=== PATIENT | female | born 1950 | race African-American/Black ===

== ENCOUNTER 2019-09-05 14:09 | Outpatient (CLI) | payer MEDICARE, MEDICAID, SELFPAY ==
[2019-09-05 15:12] LABS: Cholesterol 177 mg/dL (0-200); HDL Direct 49 mg/dL; Triglycerides 99 mg/dL (<150)
[2019-09-05 15:13] LABS: Hemoglobin A1C 7.5 % (<5.7)
[2019-09-05 15:24] LABS: LDL Cholesterol Direct 104 mg/dL
== END 2019-09-05 14:10 | disposition home or self-care (01) ==
PROVIDERS: PCP Family Medicine; Visit Provider Family Medicine
DX: E11.9 Type 2 diabetes mellitus without complications (principal)
CPT/HCPCS: 36415; 80061; 83036

== ENCOUNTER 2020-03-13 11:23 | Outpatient (CLI) | payer MEDICARE, MEDICAID, SELFPAY ==
--- NOTE | ~2020-03-13 | XR_ITS ---
XR hip LT 2V w AP pelvis DATE: 03/13/2020 11:50 INDICATION: Left hip pain. Patient fell 2 months ago. TECHNIQUE: AP pelvis. AP and lateral views of left hip COMPARISON: None FINDINGS: Osteitis pubis. The sacroiliac joints are intact. Hip joint spaces are symmetric and relati vely preserved. No pelvic fracture or bone destruction. No fracture, dislocation, avascular necrosis or bone destruct ion of the left hip. IMPRESSION: Osteitis pubis No pelvic or left hip fracture Reviewed, dictated and finalized at location A.
== END 2020-03-13 11:24 | disposition home or self-care (01) ==
PROVIDERS: PCP Family Medicine; Visit Provider Family Medicine
DX: M25.559 Pain in unspecified hip (principal)
CPT/HCPCS: 73502

== ENCOUNTER 2020-09-26 10:19 | Outpatient (CLI) | payer MEDICARE, MEDICAID, SELFPAY ==
[2020-09-26 11:02] LABS: Basophils Absolute Auto 0.1 K/mm3 (0.0-0.1); Basophils Percent Auto 0.7 % (0.2-1.2); Eosinophils Absolute Auto 0.1 K/mm3 (0-0.3); Eosinophils Percent Auto 1.1 % (0-4.4); Hematocrit 46.9 % (37.0-47.0); Hemoglobin 15.5 g/dL (12.0-15.0); Immature Granulocyte Absolute 0.01 K/mm3 (0.00-0.031); Immature Granulocyte Percent A 0.1 % (0-0.5); Lymphocytes Absolute Auto 4.23 K/mm3 (0.9-3.2); Lymphocytes Percent Auto 52.6 % (18.3-44.2); Mean Corpuscular Hemoglobin 29.4 pg (26-34); Mean Platelet Volume 10.2 fl (7.4-10.4); Monocytes Absolute Auto 0.5 K/mm3 (0.1-0.6); Monocytes Percent Auto 5.6 % (2.6-8.5); Neutrophils Absolute Auto 3.2 K/mm3 (1.3-6.7); Neutrophils Percent Auto 39.9 % (45.5-73.1); Platelet Count Result 304 k/mm3 (150-375); Red Blood Count 5.27 M/mm3 (4.2-5.4); Red Cell Distribution Width 14.2 % (11.5-14.5)
[2020-09-26 11:11] LABS: Alanine Aminotransferase 18 U/L (4-35); Albumin Level 4.5 g/dL (3.5-5.1); Alkaline Phosphatase 86 U/L (38-126); Anion Gap 7 mmol/L (8-16); Aspartate Amino Transferase 24 U/L (14-36); Bilirubin,Total 0.3 mg/dL (0.2-1.3); Blood Urea Nitrogen 15 mg/dL (7-17); Calcium 10.1 mg/dL (8.4-10.2); Carbon Dioxide 29 mmol/L (22-30); Chloride 103 mmol/L (98-107); Cholesterol 185 mg/dL (0-200); Estimated Glomerular Filt Rate > 60; Glucose 175 mg/dL (65-105); HDL Direct 63 mg/dL; Potassium 3.8 mmol/L (3.4-5.0); Sodium 139 mmol/L (137-145); Triglycerides 104 mg/dL (<150)
[2020-09-26 11:19] LABS: Creatinine Urine 245.9 mg/dL
[2020-09-26 11:21] LABS: LDL Cholesterol Direct 91 mg/dL
[2020-09-26 11:23] LABS: MALB Creatinine Ratio 14.8 mg/g (0-30); Microalbumin Urine Random 36.4 mg/L (0-16.7)
[2020-09-26 11:29] LABS: Hemoglobin A1C 7.4 % (<5.7)
[2020-09-26 11:40] LABS: Thyroid Stimulating Hormone 0.965 uIU/mL (0.465-4.680)
== END 2020-09-26 10:20 | disposition home or self-care (01) ==
LOC: ANHLAB 10:27
PROVIDERS: PCP Family Medicine; Visit Provider Family Medicine
DX: E11.9 Type 2 diabetes mellitus without complications (principal); E78.5 Hyperlipidemia, unspecified; I10 Essential (primary) hypertension; Z13.0 Encounter for screening for diseases of the blood and blood-forming organs and certain disorders involving the immune mechanism
CPT/HCPCS: 36415; 80053; 80061; 82043; 83036; 84443; 85025

== ENCOUNTER 2021-08-31 12:51 | Outpatient (CLI) | payer MEDICARE, MEDICAID, SELFPAY ==
[2021-08-31 13:55] LABS: Basophils Absolute Auto 0.1 K/mm3 (0.0-0.1); Basophils Percent Auto 0.8 % (0.2-1.2); Eosinophils Absolute Auto 0.1 K/mm3 (0-0.3); Eosinophils Percent Auto 1.8 % (0-4.4); Hematocrit 46.9 % (37.0-47.0); Hemoglobin 15.4 g/dL (12.0-15.0); Immature Granulocyte Absolute 0.01 K/mm3 (0.00-0.031); Immature Granulocyte Percent A 0.1 % (0-0.5); Lymphocytes Absolute Auto 3.11 K/mm3 (0.9-3.2); Lymphocytes Percent Auto 43.8 % (18.3-44.2); Mean Corpuscular HGB Conc 32.8 g/dl (32-36); Mean Corpuscular Hemoglobin 29.8 pg (26-34); Mean Corpuscular Volume 90.7 fl (80-100); Mean Platelet Volume 10.3 fl (7.4-10.4); Monocytes Absolute Auto 0.4 K/mm3 (0.1-0.6); Monocytes Percent Auto 6.2 % (2.6-8.5); Neutrophils Absolute Auto 3.4 K/mm3 (1.3-6.7); Neutrophils Percent Auto 47.3 % (45.5-73.1); Platelet Count Result 262 k/mm3 (150-375); Red Blood Count 5.17 M/mm3 (4.2-5.4); Red Cell Distribution Width 14.3 % (11.5-14.5); White Blood Count 7.1 K/mm3 (4.5-10.0)
[2021-08-31 14:01] LABS: Alanine Aminotransferase 18 U/L (4-35); Albumin Level 4.5 g/dL (3.5-5.1); Alkaline Phosphatase 88 U/L (38-126); Anion Gap 10 mmol/L (8-16); Aspartate Amino Transferase 24 U/L (14-36); Bilirubin,Total 0.5 mg/dL (0.2-1.3); Blood Urea Nitrogen 14 mg/dL (7-17); Calcium 9.5 mg/dL (8.4-10.2); Carbon Dioxide 21 mmol/L (22-30); Chloride 108 mmol/L (98-107); Cholesterol 191 mg/dL (0-200); Estimated Glomerular Filt Rate > 60; Glucose 178 mg/dL (65-110); HDL Direct 54 mg/dL; Potassium 3.4 mmol/L (3.4-5.0); Sodium 139 mmol/L (137-145); Triglycerides 98 mg/dL (<150)
[2021-08-31 14:13] LABS: LDL Cholesterol Direct 95 mg/dL
[2021-08-31 14:23] LABS: Hemoglobin A1C 7.9 % (<5.7)
== END 2021-08-31 12:52 | disposition home or self-care (01) ==
PROVIDERS: PCP Family Medicine; Visit Provider Family Medicine
DX: E11.9 Type 2 diabetes mellitus without complications (principal); D75.1 Secondary polycythemia
CPT/HCPCS: 36415; 80053; 80061; 83036; 85025

== ENCOUNTER 2022-08-09 12:48 | Outpatient (CLI) | payer MEDICARE, MEDICAID, SELFPAY ==
[2022-08-09 14:14] LABS: Alanine Aminotransferase 21 U/L (6-35); Albumin Level 4.4 g/dL (3.5-5.1); Alkaline Phosphatase 98 U/L (38-126); Anion Gap 9 mmol/L (8-16); Aspartate Amino Transferase 25 U/L (14-36); Bilirubin,Total 0.5 mg/dL (0.2-1.3); Blood Urea Nitrogen 21 mg/dL (7-17); Calcium 9.8 mg/dL (8.4-10.2); Carbon Dioxide 26 mmol/L (22-30); Chloride 104 mmol/L (98-107); Cholesterol 145 mg/dL (0-200); Estimated Glomerular Filt Rate > 60; Glucose 204 mg/dL (65-110); HDL Direct 36 mg/dL; Potassium 3.5 mmol/L (3.4-5.0); Sodium 139 mmol/L (137-145); Triglycerides 106 mg/dL (<150)
[2022-08-09 14:25] LABS: LDL Cholesterol Direct 73 mg/dL
[2022-08-09 16:33] LABS: Creatinine Urine 155.6 mg/dL
[2022-08-09 16:38] LABS: Microalbumin Urine Random 29.5 mg/L (0-16.7)
[2022-08-10 17:39] LABS: Hemoglobin A1C 9.2 % (<5.7)
== END 2022-08-09 12:49 | disposition home or self-care (01) ==
PROVIDERS: PCP Physician Assistant; Visit Provider Physician Assistant
DX: E11.9 Type 2 diabetes mellitus without complications (principal); I10 Essential (primary) hypertension
CPT/HCPCS: 36415; 80053; 80061; 82043; 83036

== ENCOUNTER 2022-11-10 11:47 | Outpatient (CLI) | payer MEDICARE, MEDICAID, SELFPAY ==
[2022-11-10 12:48] LABS: Alanine Aminotransferase 23 U/L (6-35); Albumin Level 4.7 g/dL (3.5-5.1); Alkaline Phosphatase 84 U/L (38-126); Anion Gap 9 mmol/L (8-16); Aspartate Amino Transferase 29 U/L (14-36); Bilirubin,Total 0.6 mg/dL (0.2-1.3); Blood Urea Nitrogen 12 mg/dL (7-17); Calcium 9.9 mg/dL (8.4-10.2); Carbon Dioxide 25 mmol/L (22-30); Chloride 105 mmol/L (98-107); Estimated Glomerular Filt Rate > 60; Glucose 144 mg/dL (65-110); Potassium 3.5 mmol/L (3.4-5.0); Sodium 139 mmol/L (137-145)
== END 2022-11-10 11:48 | disposition home or self-care (01) ==
PROVIDERS: PCP Physician Assistant; Visit Provider Physician Assistant
DX: Z51.81 Encounter for therapeutic drug level monitoring (principal)
CPT/HCPCS: 36415; 80053

== ENCOUNTER 2023-01-17 07:27 | Outpatient (CLI) | payer MEDICARE, MEDICAID, SELFPAY ==
--- NOTE | ~2023-01-17 | NM_ITS ---
EXAMINATION: NM yudy stress w perfusion DATE: 01/17/2023 10:43 INDICATION: Other forms of dyspnea. TECHNIQUE: Rest images were obtained following intravenous administration of 10.5 mCi Tc99m tetrofosm in (Myoview). The patient was infused intravenously with Lexiscan (regadenoson). Then, 34 mCi Tc99m t etrofosmin (Myoview) was administered intravenously, and stress images were obtained. Data was recons tructed into short axis and horizontal and vertical long axis SPECT images. Gated SPECT images were a lso obtained. COMPARISON: Myocardial perfusion imaging 05/01/2018 FINDINGS: There is no definite reversible or fixed perfusion abnormality to suggest ischemia or infar ction. There is no segmental wall motion abnormality. Left ventricular ejection fraction measures > 70%. IMPRESSION: 1. No definite ischemia or infarct. 2. Normal left ventricular ejection fraction measuring >70%. Reviewed, dictated and finalized at location A.
--- NOTE | 2023-01-17 07:40 | ECHO_ITS ---
Patient Info Name: Sindhu Gutierrez Age: 72 years : 1950 Gender: Female Ht: 63 in Wt: 182 lbs BSA: 1.95 m2 HR: 94 bpm BP: 154 / 108 mmHg Technical Quality: Fair Exam Date: 01/17/2023 7:59 AM Exam Location: [facility] Pulmonary Patient Status: Outpatient Admit Date: 01/17/2023 Staff Ordering Physician: Lalit Nur DO Geophysical Computer: Rebekah Beckham RDCS Attending Provider: Lalit Nur DO Referring Physician: Boom MCGUIRE; Exam Type: CA echo doppler color flow Study Info Indications R06.09 - Other forms of dyspnea Complete two-dimensional, color flow and Doppler transthoracic echocardiogram is performed. Summary 1. Complete two-dimensional, color flow and Doppler transthoracic echocardiogram is performed. 2. Left ventricular chamber dimension is normal. 3. Left ventricular systolic function is normal, estimated at 60-65%. 4. There is mild concentric increased left ventricular wall thickness. 5. The left ventricular diastolic function is grade I diastolic dysfunction. 6. E/e' 8 is minimally elevated. 7. Global longitudinal strain is abnormal at -15.9%. 8. There is trace tricuspid valve regurgitation. 9. No pulmonary hypertension, estimated pulmonary arterial systolic pressure is 36 mmHg. Left Ventricle E/e' 8 is minimally elevated. Global longitudinal strain is abnormal at -15.9%. Left ventricular chamber dimension is normal. Left ventricular systolic function is normal, estimated at 60-65%. There is mild concentric increased left ventricular wall thickness. The left ventricular diastolic function is grade I diastolic dysfunction. Right Ventricle Right ventricular chamber dimension is normal. Right ventricular systolic function is normal. Left Atria Left atrial chamber dimension is normal. Right Atria Right atrial chamber dimension is normal. Aortic Valve The aortic valve is trileaflet. There is no aortic valve stenosis. There is no aortic valve regurgitation. Pulmonic Valve There is no pulmonic regurgitation. Mitral Valve There is no mitral valve stenosis. There is no mitral valve regurgitation. Tricuspid Valve There is trace tricuspid valve regurgitation. No pulmonary hypertension, estimated pulmonary arterial systolic pressure is 36 mmHg. Pericardium/Pleural There is no pericardial effusion. Inferior Vena Cava Normal inferior vena cava with >50% collapse upon inspiration consistent with normal right atrial pressure, 5 mmHg. Aorta The aortic root size at the sinus of Valsalva is normal. Left Ventricular Outflow Tract Name Value Normal LVOT 2D LVOT Diameter 1.9 cm LVOT Doppler LVOT Peak Gradient 6 mmHg LVOT Mean Gradient 3 mmHg LVOT VTI 20 cm LVOT VTI/AV VTI Ratio 0.9 LVOT Stroke Volume 58 ml LVOT CO 5.0 l/min LVOT CI 2.6 l/min/m2 Pulmonic Valve Name Value Normal PIOTR [place]
--- NOTE | 2023-01-17 07:40 | EST_ITS ---
Patient Info Name: Sindhu Gutierrez Age: 72 years : 1950 Gender: Female Ht: 63 in Wt: 182 lbs BSA: 1.95 m2 HR: 90 bpm BP: 168 / 76 mmHg Heart Rhythm: Sinus Rhythm Exam Date: 01/17/2023 9:33 AM Exam Location: [facility] Stress Patient Status: Outpatient Admit Date: 01/17/2023 Staff Ordering Physician: Lalit Nur DO Attending Provider: Lalit Nur DO Exercise Technologist: Roselia Lomeli CT Exercise Physician: Lalit Nur DO Exam Type: CA stress yudy w NM Study Info Indications R06.09 - Other forms of dyspnea A regadenoson stress test was performed. Summary 1. 1. Negative lexiscan stress test for ischemic ST changes by ECG criteria. 2. 2. Baseline hypertension. 3. 3. Nuclear scan to follow and will be reported separately. Please correlate with it. 4. 4. Patient informed of the above results. Protocol: Lexiscan Stress ECG Details Stage: REST Duration (min): 1 min : 54 sec HR (bpm): 91 SBP (mmHg): 168 DBP (mmHg): 76 Stage: REST Duration (min): 8 min : 1 sec HR (bpm): 96 SBP (mmHg): 168 DBP (mmHg): 76 Stage: STAGE 1 Duration (min): 0 min : 59 sec HR (bpm): 118 SBP (mmHg): 166 DBP (mmHg): 78 Stage: RECOVERY Duration (min): 1 min : 0 sec HR (bpm): 113 SBP (mmHg): 166 DBP (mmHg): 78 Stage: RECOVERY Duration (min): 2 min : 0 sec HR (bpm): 110 SBP (mmHg): 166 DBP (mmHg): 78 Stage: RECOVERY Duration (min): 2 min : 55 sec HR (bpm): 108 SBP (mmHg): 155 DBP (mmHg): 76 Rest HR: 96 bpm Peak HR: 119 bpm Rest Sys BP: 168 mmHg Peak Sys BP: 166 mmHg Max Pred HR: 147 bpm % Max Pred HR: 81 % Target HR: 125 bpm Max RPP: 19,754 bpm*mmHg Termination Reason: Completed protocol Cardiac Symptoms: Shortness of breath Total Time: 1 min : 0 sec Rest Mireles BP: 76 mmHg Peak Mireles BP: 78 mmHg Total Dose: 0.4 mg Resting ECG Sinus rhythm, anterolateral infarct, inferior infarct, age indeterminate. Stress ECG No ST changes. Arrhythmias None. Report Signatures
== END 2023-01-17 07:28 | disposition home or self-care (01) ==
LOC: ANHCARD 07:28
PROVIDERS: PCP Physician Assistant; Visit Provider Internal Medicine Cardiovascular Disease
DX: R06.09 Other forms of dyspnea (principal)
CPT/HCPCS: 78452; 93017; 93306; A9502

== ENCOUNTER 2023-03-09 13:23 | Outpatient (CLI) | payer MEDICARE, MEDICAID, SELFPAY ==
[2023-03-09 13:58] LABS: Basophils Absolute Auto 0.1 K/mm3 (0.0-0.1); Basophils Percent Auto 0.6 % (0.2-1.2); Eosinophils Absolute Auto 0.1 K/mm3 (0-0.3); Eosinophils Percent Auto 0.6 % (0-4.4); Hematocrit 49.4 % (37.0-47.0); Hemoglobin 16.1 g/dL (12.0-15.0); Immature Granulocyte Absolute 0.02 K/mm3 (0.00-0.031); Immature Granulocyte Percent A 0.2 % (0-0.5); Lymphocytes Absolute Auto 4.24 K/mm3 (0.9-3.2); Lymphocytes Percent Auto 49.9 % (18.3-44.2); Mean Corpuscular HGB Conc 32.6 g/dl (32-36); Mean Corpuscular Hemoglobin 29.4 pg (26-34); Mean Corpuscular Volume 90.3 fl (80-100); Mean Platelet Volume 9.6 fl (7.4-10.4); Monocytes Absolute Auto 0.5 K/mm3 (0.1-0.6); Monocytes Percent Auto 6.2 % (2.6-8.5); Neutrophils Absolute Auto 3.6 K/mm3 (1.3-6.7); Neutrophils Percent Auto 42.5 % (45.5-73.1); Platelet Count Result 305 k/mm3 (150-375); Red Blood Count 5.47 M/mm3 (4.2-5.4); Red Cell Distribution Width 14.9 % (11.5-14.5); White Blood Count 8.5 K/mm3 (4.5-10.0)
[2023-03-09 14:10] LABS: Alanine Aminotransferase 16 U/L (6-35); Albumin Level 4.5 g/dL (3.5-5.1); Alkaline Phosphatase 73 U/L (38-126); Anion Gap 7 mmol/L (8-16); Aspartate Amino Transferase 20 U/L (14-36); Bilirubin,Total 0.6 mg/dL (0.2-1.3); Blood Urea Nitrogen 13 mg/dL (7-17); Calcium 9.9 mg/dL (8.4-10.2); Carbon Dioxide 29 mmol/L (22-30); Chloride 101 mmol/L (98-107); Cholesterol 145 mg/dL (0-200); Estimated Glomerular Filt Rate > 60; Glucose 121 mg/dL (65-110); HDL Direct 51 mg/dL; Potassium 3.5 mmol/L (3.4-5.0); Sodium 137 mmol/L (137-145); Triglycerides 90 mg/dL (<150)
[2023-03-09 14:21] LABS: LDL Cholesterol Direct 70 mg/dL
[2023-03-09 15:03] LABS: Creatinine Urine 38.2 mg/dL
[2023-03-09 15:16] LABS: Microalbumin Urine Random < 6.0 mg/L (0-16.7)
[2023-03-09 15:17] LABS: MALB Creatinine Ratio < 15.7 mg/g (0-30)
[2023-03-09 21:37] LABS: Hemoglobin A1C 7.1 % (<5.7)
== END 2023-03-09 13:24 | disposition home or self-care (01) ==
PROVIDERS: PCP Physician Assistant; Visit Provider Physician Assistant
DX: E11.9 Type 2 diabetes mellitus without complications (principal); I10 Essential (primary) hypertension
CPT/HCPCS: 36415; 80053; 80061; 82043; 83036; 85025

== ENCOUNTER 2023-12-07 13:35 | Outpatient (CLI) | payer MEDICARE, SELFPAY ==
[2023-12-07 14:24] LABS: Alanine Aminotransferase 18 U/L (6-35); Albumin Level 4.4 g/dL (3.5-5.1); Alkaline Phosphatase 101 U/L (38-126); Anion Gap 8 mmol/L (4-12); Aspartate Amino Transferase 30 U/L (14-36); Bilirubin,Total 0.5 mg/dL (0.2-1.3); Blood Urea Nitrogen 16 mg/dL (7-17); Calcium 9.8 mg/dL (8.4-10.2); Carbon Dioxide 26 mmol/L (22-30); Chloride 103 mmol/L (98-107); Cholesterol 134 mg/dL (0-200); Estimated Glomerular Filt Rate > 60; Glucose 117 mg/dL (65-110); HDL Direct 41 mg/dL; Potassium 3.3 mmol/L (3.4-5.0); Sodium 137 mmol/L (137-145); Triglycerides 107 mg/dL (<150)
[2023-12-07 14:35] LABS: LDL Cholesterol Direct 71 mg/dL
[2023-12-07 17:41] LABS: Creatinine Urine 98.9 mg/dL
[2023-12-07 17:45] LABS: MALB Creatinine Ratio 12.2 mg/g (0-30); Microalbumin Urine Random 12.1 mg/L (0-16.7)
[2023-12-07 18:10] LABS: Hemoglobin A1C 6.7 % (<5.7)
== END 2023-12-07 13:36 | disposition home or self-care (01) ==
LOC: ANHLAB 13:38
PROVIDERS: PCP Nurse Practitioner Family; Visit Provider Nurse Practitioner Family
DX: E78.5 Hyperlipidemia, unspecified (principal); E11.9 Type 2 diabetes mellitus without complications; I10 Essential (primary) hypertension
CPT/HCPCS: 36415; 80053; 80061; 82043; 83036; 84443

== ENCOUNTER 2024-02-10 13:27 | Emergency (ER) | payer MEDICARE, SELFPAY ==
[2024-02-10 13:35] VITALS: BP 171/116; PULSE 114; RESP 22; TEMP 36.8; O2SAT 99
--- NOTE | 2024-02-10 13:41 | ED.EXTPRO ---
HPI - Extremity Problem General Chief complaint: Extremity Problem,Nontraumatic Stated complaint: sciatica on left side Time Seen by Provider: 02/10/24 13:36 Source: patient Mode of arrival: ambulatory Limitations: no limitations History of Present Illness HPI Narrative: 73 years old female came to the ED by Jules complaining of pain across lower back going to her left buttock started 2 days ago. Patient reports lifting a lot heavy food in the last 3 days and a lot of walk. She denies any tingling, numbness, focal weakness or radiation of pain. Patient denies Patient denies bowel dysfunction, bladder dysfunction, altered sensation, focal weakness, or saddle numbness, Related Data Home Medications Medication Instructions Recorded Confirmed naproxen sodium 220 mg tablet 220 mg PO BID PRN 10/06/23 01/20/24 (Aleve) Allergies Allergy/AdvReac Type Severity Reaction Status Date / Time PROPOXYPHENE HCL Allergy Mild Unknown Uncoded 02/10/24 13:28 Review of Systems Review of Systems: All systems reviewed & are unremarkable except as noted in HPI and below PMFSH Past Medical History Medical History (Updated 02/10/24 @ 14:16 by Fabiano Huitron MD) Chronic back pain DDD (degenerative disc disease) Diabetes HTN (hypertension) Surgical History Surgical History History of carpal tunnel release Bilateral History of hysterectomy History of rotator cuff surgery Bilateral Family History Family History Mother Diabetes mellitus Family history of congestive heart failure Sibling Diabetes mellitus Hypertension Social History Social History Years smoked: 24 Smoking status: Current every day smoker Second hand tobacco smoke exposure: Yes Additional smoking assessment comments: she started smoking 24 years ago Alcohol intake: never Substance use: never Substance use type: does not use Do You Feel Safe in your Home?: Yes Lack of Transportation: No Lack of Food: Sometimes True Current Housing: I Have Housing Concerned About Future Housing: No Difficulty Paying Gas/Electric Bills: No Difficulty Paying for Meds: No Currently Unemployed: No Education: High School Diploma/GED Difficulty w/ Childcare or Family Care: No Living arrangements: alone Occupation/Education: retired Gender identity (if verbalized by the patient): Female Spiritual care concerns: No Agree to blood products: Yes Exam Narrative: General appearance: Well-developed, well-nourished Skin: Normal color Head: Normocephalic, nontraumatic Eyes: Clear conjunctiva ENT: Oropharynx normal, ears normal, nose normal Neck: Supple, nontender Chest and respiratory: Airway patent, no respiratory distress, no accessory muscle use Heart: Regular rate/rhythm Abdomen: Soft, nontender, no organomegaly, quiet bowel sounds Vascular: Normal peripheral pulses, normal capillary refill. Musculoskeletal: Diffuse tenderness across lumbar area and at the left buttock. No bruises, no swelling, no rash Neurologic: Alert and oriented ?3, TECHNICAL SPECIALIST CYTOGENETICS is normal as tested, no gross motor deficit Course Vital Signs Vital signs: Vital Signs Temperature 36.8 C 02/10/24 13:35 Pulse Rate 114 H 02/10/24 13:35 Respiratory Rate 22 H 02/10/24 13:35 Blood Pressure 171/116 H 02/10/24 13:35 Pulse Oximetry 99 02/10/24 13:35 Temperature 36.8 C 02/10/24 13:35 Pulse Rate 114 H 02/10/24 13:35 Respiratory Rate 22 H 02/10/24 13:35 Blood Pressure 171/116 H 02/10/24 13
[2024-02-10] MEDS: ONDANSETRON HCL ODT 4 MG TABLET PO (14:25)
[2024-02-10] MEDS: HYDROmorphone HCL INJ (*CRX) 1 MG/ML SYR IM (14:25)
[2024-02-10] MEDS: KETOROLAC (*BKC) 60 MG/2 ML VIAL IM (14:26)
[2024-02-10 15:16] VITALS: BP 169/98; PULSE 110; RESP 19; TEMP 36.6; O2SAT 98
== END 2024-02-10 15:18 | disposition home or self-care (01) ==
PROVIDERS: Emergency Provider Emergency Medicine; PCP Nurse Practitioner Family
DX: M54.50 Low back pain, unspecified (principal); I10 Essential (primary) hypertension; E11.9 Type 2 diabetes mellitus without complications; F17.200 Nicotine dependence, unspecified, uncomplicated; Z90.710 Acquired absence of both cervix and uterus; Z79.899 Other long term (current) drug therapy; Z79.84 Long term (current) use of oral hypoglycemic drugs
CPT/HCPCS: 96372; 99284; A9270; J1170; J1885

== ENCOUNTER 2024-05-01 13:01 | Outpatient (CLI) | payer MEDICARE, SELFPAY ==
--- NOTE | 2024-05-01 14:30 | NEURO_ITS ---
Impression: # Complains of pain and numbness of right hand. # Right ulnar neuropathy across the elbow. # No Carpal Tunnel Syndrome. # Normal needle/EMG exam. Nerve Conduction Studies Anti Sensory Summary Table Stim Site NR Peak (ms) P-T Amp (?V) Site1 Site2 Delta-P (ms) Dist (cm) Fran (m/s) Right Median Anti Sensory (2-3nd Digit) Wrist 3.6 20.9 Wrist 2-3nd Digit 3.6 14.0 39 Wrist 3.5 16.3 Wrist 2-3nd Digit 3.6 14.0 39 Right Radial Anti Sensory (Base 1st Digit) Wrist 2.7 20.8 Wrist Base 1st Digit 2.7 0.0 Right Ulnar Anti Sensory (5th Digit) Wrist 3.3 21.5 Wrist 5th Digit 3.3 14.0 42 Motor Summary Table Stim Site NR Onset (ms) O-P Amp (mV) Site1 Site2 Delta-0 (ms) Dist (cm) Fran (m/s) Right Median Motor (Abd Poll Brev) Wrist 3.7 1.8 Elbow Wrist 5.2 30.0 58 Elbow 8.9 2.5 Right Ulnar Motor (Abd Dig Minimi) Wrist 3.0 3.3 A Elbow Wrist 6.3 29.0 46 A Elbow 9.3 2.1 B Elbow Wrist 3.6 22.0 61 B Elbow 6.6 2.7 F Wave Studies NR F-Lat (ms) L-R F-Lat (ms) Right Median (Mrkrs) (Abd Poll Brev) 29.62 Right Ulnar (Mrkrs) (Abd Dig Min) 29.93 EMG Side Muscle Nerve Root Ins Act Fibs Amp Dur Recrt Comment Right 1stDorInt Ulnar C8-T1 Nml Nml Nml Nml Nml Right Ext Indicis Radial (Post Int) C7-8 Nml Nml Nml Nml Nml Right Ext Digitorum Radial (Post Int) C7-8 Nml Nml Nml Nml Nml Right BrachioRad Radial C5-6 Nml Nml Nml Nml Nml Right PronatorTeres Median C6-7 Nml Nml Nml Nml Nml Right Abd Poll Brev Median C8-T1 Nml Nml Nml Nml Nml Right ABD Dig Min Ulnar C8-T1 Nml Nml Nml Nml Nml MTDD
== END 2024-05-01 13:02 | disposition home or self-care (01) ==
LOC: ANHNEURO 13:05
PROVIDERS: PCP Nurse Practitioner Family; Visit Provider Nurse Practitioner Family
DX: G56.21 Lesion of ulnar nerve, right upper limb (principal); G56.01 Carpal tunnel syndrome, right upper limb
CPT/HCPCS: 95886; 95909

== ENCOUNTER 2024-06-13 15:04 | Outpatient (CLI) | payer MEDICARE, SELFPAY ==
--- NOTE | ~2024-06-13 | MR_ITS ---
EXAMINATION: MR cervical spine wo con DATE: 06/13/2024 15:58 INDICATION: Cervicalgia TECHNIQUE: Magnetic resonance imaging (MRI) of the cervical spine was performed without intravenous c ontrast. Sequences included sagittal T2-weighted FSE, sagittal T2-weighted FS FSE, sagittal T1-weight ed FSE, axial MERGE and axial T2-weighted FSE. COMPARISON: 07/20/2010 FINDINGS: Straightening of the normal cervical lordosis. 5 degrees upper thoracic levocurvature. Cervical verte bral body heights are normal. Chronic mild anterior wedging at T5. Bone marrow signal intensity is n ormal. Interval progression of now mild to moderate disc height loss at C4-C5, C5-C6 and C6-C7. Mild disc height loss at C3-C4 and mild disc height loss at T1-T2, moderate disc height loss at T2-T3 thro ugh T4-T5 and severe left-sided predominant disc height loss at T5-T6. There are disc bulges resultin g in mild central canal stenosis from T1-T2 through T5-T6. Cord signal intensity is normal. Visual ce rvical soft tissues are unremarkable. The following disc levels are specifically discussed: C2-C3: Disc is bulging. There is mild bilateral uncovertebral joint osteoarthritis. There is moderate bilateral facet joint osteoarthritis. There is mild left neural foraminal stenosis. There is minimal central canal stenosis. C3-C4: Disc is bulging. There is mild right and moderate left uncovertebral joint osteoarthritis. The re is moderate right and severe left facet joint osteoarthritis. There is mild right and moderate to severe left neural foraminal stenosis. There is mild central canal stenosis with mild flattening the ventral surface of the cord. C4-C5: Disc is bulging. There is moderate right and severe left uncovertebral joint osteoarthritis. T here is severe right and moderate left facet joint osteoarthritis. There is mild to moderate right an d moderate to severe left neural foraminal stenosis. There is mild central canal stenosis with mild i ndentation of the left ventral surface of the cord. C5-C6: Disc is bulging. There is moderate right and severe left uncovertebral joint osteoarthritis. T here is moderate right and severe left facet joint osteoarthritis. There is moderate right and modera te to severe left neural foraminal stenosis. There is mild central canal stenosis with mild indentati on of the left ventral surface of the cord. C6-C7: Disc is bulging. There is severe bilateral uncovertebral joint osteoarthritis. There is mild r ight and severe left facet joint osteoarthritis. There is moderate bilateral neural foraminal stenosi s. There is mild central canal stenosis with mild flattening the ventral surface of the cord. C7-T1: The disc does not extend beyond the endplate margin. There is mild left uncovertebral joint os teoarthritis. There is moderate left and severe right facet joint osteoarthritis. There is mild bilat eral neural foraminal stenosis. There is no central canal stenosis. IMPRESSION: 1. Progression of now mild to moderate cervical spondylosis. Reviewed, dictated and finalized at location A. IGURATION MANAGEMENT ANALYST
--- NOTE | ~2024-06-13 | XR_ITS ---
EXAMINATION: XR lumbar spine min 4V DATE: 06/13/2024 16:08 INDICATION: Neck pain. TECHNIQUE: 6 views of lumbar spine were obtained. COMPARISON: None. FINDINGS: There is 11 degrees levoscoliosis of lumbar spine. There is mild chronic anterior wedging o f L1 vertebral body. There is 3 mm anterolisthesis of L4 on L5. There is moderately decreased disc he ight at L1-L2, mildly decreased disc height at L2-L3 and L4-L5, and severely decreased disc height at L5-S1. There is multilevel facet joint osteoarthritis, severe in lower lumbar spine. IMPRESSION: 1. Severe lumbar spondylosis. 2. Lumbar levoscoliosis. Reviewed, dictated and finalized at location A. T LOADER RESIDENTIAL DRIVER
--- NOTE | ~2024-06-13 | XR_ITS ---
XR cervical spine 4-5V Ordering provider: Rachael Welch DO History: . M54.2 - Cervicalgia . Comparison: None. FINDINGS: VERTEBRAL BODIES: Normal height and alignment. No visible fracture or subluxation. The dens is intact . Degenerative changes of the spine. DISK SPACES: Mild Narrowing of the disc C4-C5, C5-C6 and C6-7. Multilevel facet joint disease. Multil evel uncovertebral joint osteoarthritic changes. PARASPINOUS SOFT TISSUES: No prevertebral soft tissue swelling. IMPRESSION: No acute osseous abnormality cervical spine. Multilevel degenerative disc disease. Reviewed, dictated and finalized at location A. BILITY INSURANCE CLAIM EXAMINER
--- NOTE | ~2024-06-13 | XR_ITS ---
EXAMINATION: XR thoracic spine 3V DATE: 06/13/2024 16:08 INDICATION: Neck pain. TECHNIQUE: 3 views of thoracic spine were obtained. COMPARISON: Thoracic spine radiographs 06/21/2019 FINDINGS: There is 4 degrees levocurvature of lower thoracic spine. There is 9 degrees dextrocurvatur e of thoracolumbar spine. There is mild chronic anterior wedging of T6 and T7 vertebral bodies. T4-T8 vertebral bodies. There is mildly decreased disc height at multiple levels. There is moderately decr eased disc height from T3-T4 through T6-T7 and at T9-T10. IMPRESSION: 1. Moderate thoracic spondylosis. Reviewed, dictated and finalized at location A. GER OF BUSINESS
== END 2024-06-13 15:05 | disposition home or self-care (01) ==
PROVIDERS: PCP Family Medicine; Visit Provider Family Medicine
DX: M47.894 Other spondylosis, thoracic region (principal); M47.896 Other spondylosis, lumbar region; M47.22 Other spondylosis with radiculopathy, cervical region
CPT/HCPCS: 72050; 72072; 72110; 72141

== ENCOUNTER 2024-10-17 10:59 | Outpatient (CLI) | payer MEDICARE, SELFPAY ==
[2024-10-17 11:27] LABS: Basophils Percent Auto 0.6 % (0.2-1.2); Eosinophils Absolute Auto 0.2 K/mm3 (0-0.3); Eosinophils Percent Auto 2.1 % (0-4.4); Hematocrit 44.2 % (37.0-47.0); Hemoglobin 14.2 g/dL (12.0-15.0); Immature Granulocyte Absolute 0.02 K/mm3 (0.00-0.031); Immature Granulocyte Percent A 0.3 % (0-0.5); Lymphocytes Percent Auto 44.9 % (18.3-44.2); Mean Corpuscular HGB Conc 32.1 g/dl (32-36); Mean Corpuscular Hemoglobin 28.7 pg (26-34); Mean Corpuscular Volume 89.3 fl (80-100); Mean Platelet Volume 9.5 fl (7.4-10.4); Monocytes Absolute Auto 0.5 K/mm3 (0.1-0.6); Monocytes Percent Auto 6.3 % (2.6-8.5); Neutrophils Absolute Auto 3.3 K/mm3 (1.3-6.7); Neutrophils Percent Auto 45.8 % (45.5-73.1); Platelet Count Result 315 k/mm3 (150-375); Red Blood Count 4.95 M/mm3 (4.2-5.4); White Blood Count 7.1 K/mm3 (4.5-10.0)
[2024-10-17 11:42] LABS: Alanine Aminotransferase 13 U/L (6-35); Albumin Level 4.3 g/dL (3.5-5.1); Alkaline Phosphatase 93 U/L (38-126); Anion Gap 8 mmol/L (4-12); Aspartate Amino Transferase 24 U/L (14-36); Bilirubin,Total 0.6 mg/dL (0.2-1.3); Blood Urea Nitrogen 16 mg/dL (7-17); Calcium 9.9 mg/dL (8.4-10.2); Carbon Dioxide 26 mmol/L (22-30); Chloride 105 mmol/L (98-107); Cholesterol 151 mg/dL (0-200); Estimated Glomerular Filt Rate > 60; Glucose 115 mg/dL (65-110); HDL Direct 67 mg/dL; Potassium 3.7 mmol/L (3.4-5.0); Sodium 139 mmol/L (137-145); Triglycerides 80 mg/dL (<150)
[2024-10-17 11:45] LABS: Hemoglobin A1C 6.9 % (<5.7)
[2024-10-17 11:53] LABS: LDL Cholesterol Direct 56 mg/dL
[2024-10-17 12:07] LABS: Microalbumin Urine Random 8.8 mg/L (0-16.7)
--- OUTSIDE RECORDS SUMMARY | 2024-10-17 12:28 | XMS_ITS | Encounter Summary ---
Author Organization [facility] Address [address] [place] [address] Care Team Providers Care Grain Oilseed Or Pasture Farm Manager Name Role Phone Izabel Hunt DO Primary Care Provider [phone] Encounter Details Date Type Department Care Team (Late st Contact Info) Description 03/11/2008 Outpatient Historical [facility] Izabel Esteban DO [address] [facility] [address] [place] [address] Pain in Joint, Pelvic Region and Thigh Social History Tobacco Use Types Packs/Day Years Used Date Smoking Tobacco: Never Assessed Comments Unknown Sex and Gender Information Value Date Recorded Sex Assigned at Not on file 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 Gender Identity Not on file Sexual Orientation Not on file documented as of this encounter Plan of Treatment Not on file documented as of this encounter Procedures Procedure Name Priority Date/Time Associated Diagnosis Comments XR HIP 2 OR 3 VIEWS RT Routine 03/11/2008 2:38 PM CDT documented in this encounter Results * XR HIP 2+ VW RIGHT (03/11/2008 2:38 PM CDT) Anatomical Region Laterality Modality Lower Extremity Right Other 03/11/2008 2:38 PM CDT Narrative 03/12/2008 11:58 AM CDT [address] [address] Admit Date: 03/11/2008 GUTIERREZ, BEAR Sex: F Admit Prov: IZABEL HUNT Date: 1950 Primary Care Prov: IZABEL HUNT CMRN: [id number] Room: MIKE N: [id number] IMAGING SERVICES Ordering Prov: N/A Accession Number: [id number] Interpretation RIGHT HIP 2 VIEWS 03/11/08 History: Pain Examination of the pelvis and right hip show no evidence of fracture displacement or bone erosion. There is slight joint space narrowing bilaterally. There is evidence of osteitis pubis. SI joints appear normal. No acute bony abnormality is seen. . Dictated by: ALMITA WINTER 03/12/2008 08:44 Electronically signed by: ALMITA WINTER 03/12/2008 11:57 Transcribed: 03/12/2008 08:50 Procedure Note Almita Winter MD - 03/12/[address] [address] Admit Date: 03/11/2008 BEAR GUTIERREZ Sex: F Admit Prov: IZABEL HUNT Date: 1950 Primary Care Prov: IZABEL HUNT CMRN: [id number] Room: MIKE N: [id number] IMAGING SERVICES Ordering Prov: N/A Interpretation RIGHT HIP 2 VIEWS 03/11/08 History: Pain Examination of the pelvis and right hip show no evidence offracture displacement or bone erosion. There is slight joint space narrowing bilaterally. There is evidence of osteitis pubis. SI joints appearnormal. No acute bony abnormality is seen. . Dictated by: ALMITA WINTER 03/12/2008 08:44 Electronically signed by: ALMITA WINTER 03/12/2008 11:57 Transcribed: 03/12/2008 08:50 Izabel Hunt DO DIAGNOSTIC IMAGING ORDERABLES Fi nal Result documented in this encounter Visit Diagnoses Diagnosis Pain in joint, pelvic region and thigh documented in this encounter Care Teams Grain Oilseed Or Pasture Farm Manager Relationship Specialty Start Date End Date Izabel Hunt DO [address] [place] [id number] PCP - General 01/13/01 documented as of this encounter
--- OUTSIDE RECORDS SUMMARY | 2024-10-17 12:28 | XMS_ITS | Encounter Summary ---
Author Organization [facility] Address 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
--- OUTSIDE RECORDS SUMMARY | 2024-10-17 12:28 | XMS_ITS | Encounter Summary ---
Author Organization [facility] Address [address] [place] [address] Care Team Providers Care Auto Seat Cover Installer Name Role Phone Jax Chowdhury DO Primary Care Provider [phone] Encounter Details Date Type Department Care Team (Late st Contact Info) Description 01/13/2001 Outpatient Historical [facility] Saran Durán MD [facility] [place] [address] Er, Authorized P NO ADDRESS ON FILE Myalgia and myositis, unspecified (Primary Dx) Social History Tobacco Use Types Packs/Day Years Used Date Smoking Tobacco: Never Assessed Comments Unknown Sex and Gender Information Value Date Recorded Sex Assigned at Not on file Legal Sex Female 4:34 AM ADMISSIONS ASSISTANT Gender Identity Not on file Sexual Orientation Not on file documented as of this encounter Plan of Treatment Not on file documented as of this encounter Visit Diagnoses Diagnosis Myalgia and myositis, unspecified- Primary Mylagia and myositis, unspecified documented in this encounter Care Teams Auto Seat Cover Installer Relationship Specialty Start Date End Date Jax Chowdhury DO [address] [facility] [address] [place] [address] PCP - General 01/13/01 documented as of this encounter
--- OUTSIDE RECORDS SUMMARY | 2024-10-17 12:28 | XMS_ITS | Clinical Summary ---
Author Organization [facility] Address [address] [place] [address] Care Team Providers Care Animal Feeder Name Role Phone Rachael Welch DO Primary Care Provider [phone] Allergies Active Allergy Reactions Criticality Noted Date Comments Propoxyphene Rash Low 11/07/2012 Medications oxyCODONE-aceta minophen 10-325 MG tablet Take 1 tablet by mouth every 8 (eight) hours as needed for Pain. Active traMADol 50 MG tablet Take 50 mg by mouth 3 (three) times a day. Active gabapentin 300 MG capsule Take 300 mg by mouth as needed. Active losartan-hydroc hlorothiazide 100-25 MG tablet Take 1 tablet by mouth daily. Active amlodipine 10 MG tablet Take 10 mg by mouth daily. Active METOPROLOL SUCCINATE ER OR Take 25 mg by mouth. Active metFORMIN 500 MG tablet Take 500 mg by mouth 2 (two) times daily with meals. Active cyclobenzaprine 10 MG tabletIndicatio ns:Takes 2 at night Take 10 mg by mouth nightly at bedtime. Active SITagliptin (JANUVIA) 100 MG tablet Januvia 100 mg tablet TAKE 1 TABLET BY MOUTH DAILY Active vitamin D3, cholecalciferol , 1000 UNIT Tab tablet Take 1 tablet by mouth daily. Active Encounters Date Type Department Care Team Description 09/17/2024 1:31 PM CDT - 09/17/2024 3:34 PM CDT Emergency [facility] [place] [address] Mandy Hsieh PA Blood Pressure Check Discharge Disposition: Home or Self Care (Routine Discharge) 09/17/2024 Travel from Last 3 Months Social History Tobacco Use Types Packs/Day Years Used Date Smoking Tobacco: Every Day Cigarettes Smokeless Tobacco: Never Alcohol Use Standard Drinks/Week Comments No 0 (1 standard drink = 0.6 oz pur e alcohol) AUDIT-C Answer Date Recorded Frequency of Alcohol Consumption Never 09/20/2018 Average Number of Drinks Not on file 019 Frequency of Binge Drinking Not on file 09/02 Comments No Sex and Gender Information Value Date Recorded Sex Assigned at Female 09/17/2024 12:49 PM CDT Legal Sex Female 7:54 PM CDT Gender Identity Not on file Sexual Orientation Not on file Last Filed Vital Signs Vital Sign Reading Time Taken Comments Blood Pressure 188/112 09/17/2024 3:11 PM CDT Pulse 97 09/17/2024 3:10 PM CDT Temperature 36.9 C (98.4 F) 09/17/2024 12:40 PM CDT Respiratory Rate 16 09/17/2024 3:10 PM CDT Oxygen Saturation 100% 09/17/2024 3:10 PM CDT Inhaled Oxygen Concentration - - Weight 72.8 kg (160 lb 7.9 oz) 09/17/2024 12:40 PM CDT Height 162.6 cm (5' 4 ) 09/17/2024 12:40 PM CDT Body Mass Index 27.55 09/17/2024 12:40 PM CDT Plan of Treatment Health Maintenance Due Date Last Done Comments Hepatitis C 1967 DTaP, Tdap and Td Vaccines ( 1 - Tdap) 1968 Zoster Vaccines (1 of 2) 1999 Annual Medicare Wellness Visit 2014 Pneumococcal Vaccine: 50+ Years (2 of 2 - PPSV23 or PCV20) 08/10/2016 06/15/2016 COVID-19 Vaccine ( - 2023-2 5 season) 2024 RSV Immunization or 60+ Years (1 - 1-dose 75+ series) 2024 Colorectal Cancer Screening Colonoscopy (10 Years) 03/04/2031 03/04/2021, 03/04/2021 Dexa Scan (General) Completed 05/25/2011 Meningococcal B Vaccine Aged Out No l onger eligible based on patient's age to complete this topic Meningococcal Vaccine Aged Out No nikki damaris eligible based on patient's age to complete this topic RSV Immunizations Under 20 Months Aged Out No longer eligible b ased on patient's age to complete this topic Procedures Procedure Name Priority Date/Time Associated Diagnosis Comments ECG 12-LEAD Routine 09/17/2024 1:47 PM CDT TROPONIN, QUANT STAT 09/17/2024 1:41 PM CDT COMPREHENSIVE METABOLIC PANEL STAT 09/17/2024 1:41 PM CDT CBC W/DIFF AUTOMATED STAT 09/17/2024 1:41 PM CDT COLONOSCOPY Routine 03/04/2021 7:36 AM CDT from Last 3 Months or Most Recently Relevant to Health Maintenance Results * ECG 12 lead (09/17/2024 1:47 PM CDT) 09/17/2024 1:47 PM CDT [facility]ative [facility] - 09/17/2024 2:09 PM CDT [facility] [address] Test Date: 2024-09-17 Pat Name: AILEEN GUTIERREZ Department: 41 Room: [place] Gender: Female Concrete Bucket Hooker: [id number] : 1950 Requested By: ALMITA IRWIN Order Number: [id number] Osman MD: William Bruce Measurements Intervals [place] Rate: 87 P: 56 MS: 134 QRS: -60 QRSD: 84 T: 55 QT: 376 QTc: 454 Interpretive Statements SINUS RHYTHM LEFT ATRIAL ENLARGEMENT [-0.15mV P-WAVE IN V1/V2] POSSIBLE RIGHT VENTRICULAR CONDUCTION DELAY [RSR (QR) IN V1/V2] LEFT ANTERIOR FASCICULAR BLOCK [QRS AXIS <= -45, QR IN I, RS IN II] POSSIBLE LEFT VENTRICULAR HYPERTROPHY [VOLTAGE CRITERIA PLUS LAE OR QRS WIDENING] ANTERIOR MYOCARDIAL INFARCTION , PROBABLY OLD [40+ ms Q WAVE AND/OR ST/T ABNORMALITY IN V3/V4] INFERIOR MYOCARDIAL INFARCTION , OF INDETERMINATE AGE [40+ ms Q WAVE AND/OR ST/T ABNORMALITY IN II/aVF] No previous ECG available for comparison . Procedure Note William Bruce MD - 09/17/[address] Test Date: 2024-09-17 Pat Name: AILEEN GUTIERREZ Department: 41 Room: [place] Gender: Female Concrete Bucket Hooker: [id number] : 1950 Requested By: ALMITA IRWIN Order Number: [id number] Reading MD: William Bruce Measurements Intervals [place] Rate: 87 P: 56 MS: 134 QRS: -60 QRSD: 84 T: 55 QT: 376 QTc: 454 Interpretive Statements SINUS RHYTHM LEFT ATRIAL ENLARGEMENT [-0.15mV P-WAVE IN V1/V2] POSSIBLE RIGHT VENTRICULAR CONDUCTION DELAY [RSR (QR) IN V1/V2] LEFT ANTERIOR FASCICULAR BLOCK [QRS AXIS <= -45, QR IN I, RS IN II] POSSIBLE LEFT VENTRICULAR HYPERTROPHY [VOLTAGE CRITERIA PLUS LAE OR QRS WIDENING] ANTERIOR MYOCARDIAL INFARCTION , PROBABLY OLD [40+ ms Q WAVE AND/OR ST/T ABNORMALITY IN V3/V4] INFERIOR MYOCARDIAL INFARCTION , OF INDETERMINATE AGE [40+ ms Q WAVEAND/OR ST/T ABNORMALITY IN II/aVF] No previous ECG available for comparison . us Almita Irwin PA-C ECG ORDERABLES Final Resul t [facility] RAD * (ABNORMAL) COMPREHENSIVE METABOLIC PANEL (09/17/2024 1:41 PM CDT) [facility] GLUCOSE 108(H) 70 - 99 MG/DL 09/17/2024 2:13 PM CDT [facility] BUN 14 7 - 18 MG/DL 09/17/2024 2:13 PM CDT [facility] CREATININE S/P/B 0.82 0.55 - 1.02 MG/DL 09/17/2024 2:13 PM CDT [facility] SODIUM S/P/B 140 136 - 145 MMOL/L 09/17/2024 2:13 PM CDT [facility] POTASSIUM S/P/B 3.6 3.5 - 5.1 MMOL/L 09/17/2024 2:13 PM CDT [facility] CHLORIDE S/P/B 109 97 - 115 MMOL/L 09/17/2024 2:13 PM CDT [facility] CO2 24.5 21 - 32 MMOL/L 09/17/2024 2:13 PM CDT [facility] CALCIUM S/P/B 9.7 8.5 - 10.1 MG/DL 09/17/2024 2:13 PM CDT [facility] BILIRUBIN TOTAL S/P/B 0.7 0.2 - 1.2 MG/DL 09/17/2024 2:13 PM CDT [facility] Comment: THIS ASSAY IS NOT RECOMMENDED FOR PATIENTS UNDERGOING TREATMENT WITH ELTROMBOPAG DUE TO THE POTENTIAL FOR FALSELY ELEVATED RESULTS. TOTAL PROTEIN S/P/B 7.4 6.4 - 8.2 G/DL 09/17/2024 2:13 PM CDT [facility] ALBUMIN S/P/B 4.0 3.4 - 5.0 G/DL 09/17/2024 2:13 PM CDT [facility] AST 9(L) 15 - 37 U/L 09/17/2024 2:13 PM CDT [facility] ALT 13(L) 14 - 55 U/L 09/17/2024 2:13 PM CDT [facility] ALKALINE PHOSPHATASE S/P/B 88 50 - 136 U/L 09/17/2024 2:13 PM CDT [facility] ANION GAP 6.5 2 - 10 MMOL/L 09/17/2024 2:13 PM CDT [facility] BUN CREATININE RATIO 17.1 6 - 26 09/17/2024 2:13 PM CDT [facility] A/G RATIO 1.2 1.0 - 2.0 RATIO 09/17/2024 2:13 PM CDT [facility] GFR ESTIMATE 75(L) >90 ML/MIN/1.7 3 M2 09/17/2024 2:13 PM CDT [facility] Comment: NOTE: eGFR is not calculated for patients <18 years of age or gender unknown. This is an estimated GFR calculation using the new CKD EPI creatinine equation without race and so does not require a correction factor for race. This estimated GFR should not be used for calculating drug doses. 09/17/2024 1:41 PM CDT Almiat Irwin PA-C LABORATORY Final Resul t [facility] [address] [place] [address], [place] [phone] * (ABNORMAL) CBC W/DIFF AUTOMATED (09/17/2024 1:41 PM CDT) WBC 7.26 4.5 - 11.0 x10'3/uL 09/17/2024 1:50 PM CDT [facility] RBC 5.27 4.20 - 5.40 x10'6/uL 09/17/2024 1:50 PM CDT [facility] HGB 14.7 12.0 - 16.0 G/DL 09/17/2024 1:50 PM CDT [facility] HCT 45.8 38.0 - 48.0 % 09/17/2024 1:50 PM CDT [facility] MCV 86.9 81.0 - 99.0 FL 09/17/2024 1:50 PM CDT [facility] MCH 27.9 27.0 - 31.0 PG 09/17/2024 1:50 PM CDT [facility] MCHC 32.1 32.0 - 36.0 G/DL 09/17/2024 1:50 PM CDT [facility] RDW 16.3(H) 11.5 - 14.5 % 09/17/2024 1:50 PM CDT [facility] PLT 299 130 - 400 x10'3/uL 09/17/2024 1:50 PM CDT [facility] MPV 9.4 9.3 - 12.2 FL 09/17/2024 1:50 PM CDT [facility] DIFFERENTIAL TYPE AUTOMATED DIFFERENTIAL 09/17/2024 1:50 PM CDT [facility] NEUTROPHILS % 48.8 % 09/17/2024 1:50 PM CDT [facility] LYMPHOCYTES % 42.0 % 09/17/2024 1:50 PM CDT [facility] MONOCYTES % 6.2 % 09/17/2024 1:50 PM CDT [facility] EOSINOPHILS 2.3 % 09/17/2024 1:50 PM CDT [facility] BASOPHILS 0.6 % 09/17/2024 1:50 PM CDT [facility] IMMATURE GRANS % 0.1 % 09/18/19 1:50 PM CDT [facility] ABS. NEUTROPHILS 3.54 1.80 - 7.70 x10'3/uL 09/17/2024 1:50 PM CDT [facility] ABS. LYMPHOCYTES 3.05 1.00 - 4.80 x10'3/uL 09/17/2024 1:50 PM CDT [facility] ABS. MONOCYTES 0.45 0.24 - 0.86 x10'3/uL 09/17/2024 1:50 PM CDT [facility] ABS. EOSINOPHILS 0.17 0.04 - 0.36 x10'3/uL 09/17/2024 1:50 PM CDT [facility] ABS. BASOPHILS 0.04 0.01 - 0.08 x10'3/uL 09/17/2024 1:50 PM CDT [facility] ABS. IMMATURE GRANULOCYTES 0.01 0.00 - 0.49 x10'3/uL 09/17/2024 1:50 PM CDT [facility] 09/17/2024 1:41 PM CDT Almita Irwin PA-C LABORATORY Final Resul t Performing Organization Address City/[facility]/ZIP Co de Phone Number [facility] [address] [place] [address], [place] [phone] * TROPONIN, QUANT (09/17/2024 1:41 PM CDT) TROPONIN I HIGH SENSITIVITY 29 <54 ng/L 09/17/2024 2:13 PM CDT [facility] Comment: HIGH DOSES OF BIOTIN, TROPONIN-SPECIFIC AUTOANTIBODIES, AND ANTIBODY THERAPY CONTAINING HAMA MAY INTERFERE WITH THIS TEST RESULT. CORRELATION TO CLINICAL HISTORY AND PRESENTATION RECOMMENDED. 09/17/2024 1:41 PM CDT us Almita Irwin PA-C LABORATORY Final Resul t [facility] [address] [place] [address], [place] [phone] * Colonoscopy (03/04/2021 7:36 AM CDT) Jagdish Prakash MD - 03/04/2021 7:36 AM CDT Jagdish Herbert MD 03/04/2021 8:07 AM JGADISH HERBERT MD, FACG, FACP COLONOSCOPY 03/04/2021 This is a 70-year-old female with history of T2DM, HTN, Carpal tunnel release, knee and shoulder surgery who now presents for colonoscopy for personal history of adenomatous colon polyps. GI review of systems is negative. No endocarditis risk factors. Allergies Allergen Reactions Propoxyphene Rash Medications: see list. Family history: negative for colon cancer. VITALS: Stable. LUNGS: Clear. HEART: RRR. S1/S2 normal. ABDOMEN: NABS/NT. The procedure of colonoscopy, its indications, alternatives of barium studies and risks including perforation, bleeding, infection, reaction to medication as well as the possible need for blood or surgery were discussed with the patient prior to the procedure. The patient voices understanding, agrees to proceed and provides informed consent. INDICATION: Personal history of colon polyps. POST-OP: Four polyps removed. SEDATION: Per Anesthesia PREP: Good. With the patient in the left lateral decubitus position, the Olympus [id number] colonoscope was introduced into the rectum and advanced easily to the cecum identified by Ileocecal valve, appendiceal orifice and cecal strap. Careful inspection of the mucosa was made upon insertion and withdrawal of the endoscope. FINDINGS: Cecum, Transverse, Descending colon and Rectum including retroflexion normal. Ascending colon: 8 mm sessile polyp removed with snare polypectomy without bleed. Sigmoid colon: 1.5 cm, 1.0 cm, 8 mm sessile polyps removed with snare polypectomy without bleed. No masses, AVMs, colitis or diverticulosis seen. No complications, blood loss or implants. ASSESSMENT AND PLAN: Personal history of colon polyps: - Colonoscopy 09-20-2018 with 10 polyps - Colonoscopy 03-04-2021 with four polyps removed - If adenomatous repeat colonoscopy in three years, otherwise repeat colonoscopy in five years Thank you for allowing me to care for your patient. She will follow-up with Dr. Cutler as needed. Jagdish Herbert M.D. Cc: Dr. Baldomero Cutler us Jagdish Herbert MD GI PROCEDURE ORDERABLES Fin al Result from Last 3 Months or Most Recently Relevant to Health Maintenance Insurance MEDICARE [facility] Care Teams Animal Feeder Relationship Specialty Start Date End Date Rachael Welch DO [address] [place] [address] PCP - General FAMILY PRACTICE 09/17/24
--- OUTSIDE RECORDS SUMMARY | 2024-10-17 12:28 | XMS_ITS | Clinical Summary ---
Author Organization [facility] Care Team Providers Care Licensed Retail Supervisor Name Role Phone Unavailable Primary Care Provider Unavailabl e Social History Tobacco Use Types Packs/Day Years Used Date Smoking Tobacco: Never Assessed Comments Unknown Sex and Gender Information Value Date Recorded Sex Assigned at Not on file Legal Sex Female 11:35 PM CDT Gender Identity Not on file Sexual Orientation Not on file Plan of Treatment Health Maintenance Due Date Last Done Comments DEXA Bone Density 1950 Hepatitis C Virus (HCV) Screening 1950 TdaP Immunization 1950 Colonoscopy 1994 Colorectal Cancer Screening 1994 Cologuard 1999 Immunochemical Fecal Occult Blood 1999 Mammogram 1999 Pneumococcal Immunization (5 0+ years) (1 of 1 - PCV) 1999 Zoster Immunization (1 of 2) 1999 Influenza Immunization (#1) 2024 SARS-COV-2 Immunization ( - 2023- season) 2024 Respiratory Syncytial Virus (RSV) Immunization (Adult) (1 - 1-dose 75+ series) 2024 Hepatitis B Immunization Aged Out No longer eligible based on patient's age to complete this topic Meningococcal Immunization (ACWY) Aged Out No longer eligible based on patient's age to complete this topic Rotavirus Immunization Aged Out No lo nger eligible based on patient's age to complete this topic
--- OUTSIDE RECORDS SUMMARY | 2024-10-17 12:28 | XMS_ITS | Clinical Summary ---
Author Organization [facility] [employer] Address [address] [place] [address] Care Team Providers Care Mingle Operator Name Role Phone Dolores Cano MD Primary Care Provider [phone] Source Comments [facility],non-owned Affiliates and Associated Physician Practices is amultiple site organization consisting of ambulatory clinics and hospital sitesin [place], [place], [place] and [place]. This disclosure is being madepursuant to the Care Everywhere program and may not contain all information available regarding this patient. Last updated 18.[facility] [employer] Allergies Active Allergy Reactions Criticality Noted Date Comments Propoxyphene 11/07/2012 Medications * Be aware that medications may not be up to date on this document. Alwaysverify current medications with the patient. amLODIPine (NORVASC) 10 MG tablet Take 10 mg by mouth once daily. Active vitamin D2 (ERGOCALCIFERO L) 04405 UNIT capsule Take 1 Cap by mouth every 7 days. Active losartan-hydro chlorothiazide (HYZAAR) 100-12.5 MG tablet Take 1 Tab by mouth once daily. Active acetaminophen (TYLENOL) 500 MG tabletIndicati ons:Chronic pain Take 2 Tabs by mouth 3 times daily. Maximum allowable Acetaminophen amount = 4 Grams (4000 mg) / 24 hours. 3 Active DULoxetine (CYMBALTA) 60 MG capsuleIndicat ions:Chronic pain Take 1 Cap by mouth once daily. 30 Cap 12 3 Active meloxicam (MOBIC) 7.5 MG tabletIndicati ons:Chronic pain Take 1 Tab by mouth once daily. for 7 days to treat flare ups of pain and inflammation Repeat as needed or call Dr Sinha if not better 30 Tab 6 3 Active gabapentin (NEURONTIN) 300 MG capsuleIndicat ions:Chronic pain Take 1-2 Caps by mouth at bedtime. 60 Cap 6 3 Active traMADol (ULTRAM) 50 MG tablet TAKE 1 TABLET BY MOUTH THREE TIMES DAILY NEEDED FOR PAIN WITH OTC TYLENOL 90 Tab 0 4 Active Active Problems Problem Noted Date Diagnosed Date Chronic pain 11/07/2012 Overview (09/12/2013): 09/12/2013 alerted to multiple prescribers gets percocet from another physician Osteoarthritis 11/07/2012 RLS (restless legs syndrome) 11/07/2012 Social History Tobacco Use Types Packs/Day Years Used Date Smoking Tobacco: Every Day Smokeless Tobacco: Never Alcohol Use Standard Drinks/Week Comments No 0 (1 standard drink = 0.6 oz pur e alcohol) Comments Unknown Sex and Gender Information Value Date Recorded Sex Assigned at Not on file Legal Sex Female 10:08 AM CDT Gender Identity Not on file Sexual Orientation Not on file Last Filed Vital Signs Vital Sign Reading Time Taken Comments Blood Pressure 142/88 11/07/2012 3:39 PM CDT Pulse 69 11/07/2012 3:39 PM CDT Temperature - - Respiratory Rate - - Oxygen Saturation - - Inhaled Oxygen Concentration - - Weight 88.9 kg (196 lb) 11/07/2012 3:39 PM CDT Height 162.6 cm (5' 4 ) 11/07/2012 3:39 PM CDT Body Mass Index 33.64 11/07/2012 3:39 PM CDT Plan of Treatment Health Maintenance Due Date Last Done Comments COLOGUARD (AGES 45-75) - COL ON CA SCREENING 1950 COLON MONITORING 1950 COLONOSCOPY - COLON CA SCREENING 1949 CT COLONOGRAPHY - COLON CA SCREENING 1950 Colorectal Cancer Screening 1950 FIT - COLON CA SCREENING 1950 FLEX SIG - COLON CA SCREENING 1950 LIPID TESTING 1950 MAMMOGRAM 1950 MEDICARE AWV 12 MONTHS 1950 HEPATITIS C SCREENING 03/12/1967 DTAP/TDAP/TD VACCINES (1 - Tdap) 1968 PNEUMOCOCCAL VACCINE 50+ (1 of 1 - PCV) 1999 ZOSTER VACCINE (1 of 2) 1999 COVID-19 VACCINE ( - 2023-2 5 season) 2024 Respiratory Syncytial Virus (RSV) Vaccine Pt: or over 60 yrs (1 - 1-dose 75+ series) 2024 DEPRESSION SCREENING 07/04/2024 INFLUENZA VACCINE (Season Ended) 2025 BONE DENSITY TESTING Completed 05/25/2011 HEPATITIS B VACCINE Aged Out No longe r eligible based on patient's age to complete this topic HIB VACCINE Aged Out No longer eligi ble based on patient's age to complete this topic HPV VACCINE Aged Out No longer eligi ble based on patient's age to complete this topic MENINGOCOCCAL (Group B) VACC INE SHARED DECISION-MAKING Aged Out No longer eligibl e based on patient's age to complete this topic MENINGOCOCCAL GROUPS A/C/Y/W VACCINE Aged Out No longer eligible b ased on patient's age to complete this topic Procedures Procedure Name Priority Date/Time Associated Diagnosis Comments DEXA BONE DENSITY 2 SITES Routine 05/25/2011 from Last 3 Months or Most Recently Relevant to Health Maintenance Results * DEXA BONE DENSITY 2 SITES (05/25/2011) Anatomical Region Laterality Modality Other Saran Sinha MD DEXA ORDERABLES Final Result from Last 3 Months or Most Recently Relevant to Health Maintenance Insurance MEDICARE Care Teams Mingle Operator Relationship Specialty Start Date End Date Dolores Cano MD [address] [facility] [address] [place] [id number] PCP - General Internal Medicine 10/31/12
--- OUTSIDE RECORDS SUMMARY | 2024-10-17 12:28 | XMS_ITS | Encounter Summary ---
Author Organization [facility] Address [address] [place] [address] Care Team Providers Care Pump House Operator Name Role Phone Jax Chowdhury DO Primary Care Provider [phone] Encounter Details Date Type Department Care Team (Late st Contact Info) Description 05/03/2001 Outpatient Historical HIS [facility] Jax Esteban DO [address] [address] SCREENING MAMM-MAILG NEOPL-OTHER (Primary Dx) Social History Tobacco Use Types Packs/Day Years Used Date Smoking Tobacco: Never Assessed Comments Unknown Sex and Gender Information Value Date Recorded Sex Assigned at Not on file Legal Sex Female 4:34 AM MANAGER OF ENVIRONMENTAL SERVICES Gender Identity Not on file Sexual Orientation Not on file documented as of this encounter Plan of Treatment Not on file documented as of this encounter Visit Diagnoses Diagnosis Other screening mammogram- Primary documented in this encounter Care Teams Pump House Operator Relationship Specialty Start Date End Date Jax Chowdhury DO [address] [address] PCP - General 01/13/01 documented as of this encounter
--- OUTSIDE RECORDS SUMMARY | 2024-10-17 12:28 | XMS_ITS | Encounter Summary ---
Author Organization [facility] Address [address] [place] [address] Care Team Providers Care Manager Media Name Role Phone Jax Chowdhury DO Primary Care Provider [phone] Encounter Details Date Type Department Care Team (Late st Contact Info) Description 09/23/2003 Outpatient Historical HIS [facility] Jax Esteban DO [address] [address] SCREENING MAMM-MAILG NEOPL-OTHER (Primary Dx) Social History Tobacco Use Types Packs/Day Years Used Date Smoking Tobacco: Never Assessed Comments Unknown Sex and Gender Information Value Date Recorded Sex Assigned at Not on file Legal Sex Female 4:34 AM BILINGUAL INTERPRETER Gender Identity Not on file Sexual Orientation Not on file documented as of this encounter Plan of Treatment Not on file documented as of this encounter Visit Diagnoses Diagnosis Other screening mammogram- Primary documented in this encounter Care Teams Manager Media Relationship Specialty Start Date End Date Jax Chowdhury DO [address] [address] PCP - General 01/13/01 documented as of this encounter
--- OUTSIDE RECORDS SUMMARY | 2024-10-17 12:28 | XMS_ITS | Encounter Summary ---
Author Organization [employer] Address [address] [place] [address] Care Team Providers Care Principal Statistical Programmer Name Role Phone Jax Chowdhury DO Primary Care Provider [phone] Encounter Details Date Type Department Care Team (Late st Contact Info) Description 02/03/1999 Outpatient Historical [facility] Jenny Bruce MD NO ADDRESS ON FILE Er, Authorized P NO ADDRESS ON FILE Other and unspecified noninfectious gastroenteritis and colitis(558.9) (Primary Dx) Social History Tobacco Use Types Packs/Day Years Used Date Smoking Tobacco: Never Assessed Comments Unknown Sex and Gender Information Value Date Recorded Sex Assigned at Not on file Legal Sex Female 4:34 AM HARNESS TIER Gender Identity Not on file Sexual Orientation Not on file documented as of this encounter Plan of Treatment Not on file documented as of this encounter Visit Diagnoses Diagnosis Other and unspecified noninfectious gastroenteritis and colitis(558.9)- Primary Other and unspecified noninfectious gastroenteritis and colitis documented in this encounter Care Teams Principal Statistical Programmer Relationship Specialty Start Date End Date Jax Chowdhury DO [address] [place] [phone] PCP - General 01/13/01 documented as of this encounter
--- OUTSIDE RECORDS SUMMARY | 2024-10-17 12:28 | XMS_ITS | Clinical Summary ---
Author Organization [facility] Address [address] [place] [address] Phone Care Team Providers Care Warp Scouring Vat Tender Name Role Phone Jax Chowdhury Primary Care Provider [phone] Family History Medical History Relation Name Comments Breast Cancer Neg Hx Cancer Neg Hx Ovarian Cancer Neg Hx Social History Tobacco Use Types Packs/Day Years Used Date Smoking Tobacco: Never Assessed Comments Unknown Sex and Gender Information Value Date Recorded Sex Assigned at Not on file Legal Sex Female 4:34 AM [employer] Gender Identity Not on file Sexual Orientation Not on file Plan of Treatment Health Maintenance Due Date Last Done Comments DTAP/TDAP/TD VACCINES (1 - Tdap) 1968 COLORECTAL SCREENING 1994 Colorectal Cancer Screening 1994 FIT-DNA Q 3 years 1994 FIT/FOBT Q 1 year 1994 Flex Sig/CT Colonography Q 5 years 1994 PNEUMOCOCCAL VACCINE 50+ YEARS (1 of 1 - PCV) 03/16/19 99 ZOSTER VACCINE (1 of 2) 1999 OSTEOPOROSIS SCREENING 2014 INFLUENZA VACCINE (#1) 2024 RSV VACCINE (60+ or ) (1 - 1-dose 75+ series) 2024 Insurance [facility] BLUE ACCESS CHOICE [facility] Loop Survey ACCESS CHOICE [facility] [employer] CHOICE Care Teams Warp Scouring Vat Tender Relationship Specialty Start Date End Date Jax Chowdhury DO [address] [phone] PCP - General 01/13/01
== END 2024-10-17 11:00 | disposition home or self-care (01) ==
PROVIDERS: PCP Family Medicine; Visit Provider Family Medicine
DX: D75.1 Secondary polycythemia (principal); E11.9 Type 2 diabetes mellitus without complications; I10 Essential (primary) hypertension; E78.5 Hyperlipidemia, unspecified
CPT/HCPCS: 36415; 80053; 80061; 82043; 82607; 83036; 85025